=== PATIENT | female | born 1970 | race Caucasian/White ===

== ENCOUNTER 2022-03-30 20:20 | Emergency (ER) | payer OTHER ==
[~2022-03-30] VITALS: Ht 167.6 cm; Wt 81.6 kg
[2022-03-30 21:37] VITALS: BP 166/105
--- NOTE | 2022-03-31 01:00 | NUR ---
CALLED FOR PT. NO ANSWER
--- NOTE | 2022-03-31 01:58 | NUR ---
PATIENT LEFT WITHOUT BEING SEEN BY DR. JAIN. NO FURTHER CARE PROVIDED FOR PATIENT.
--- NOTE | 2022-03-31 01:58 | NUR ---
PT CALLED. NO ANSWER
== END 2022-03-31 01:58 | disposition left against medical advice (07) ==
LOC: MED 20:20
DX: R42 Dizziness and giddiness (principal); H92.09 Otalgia, unspecified ear; Z53.21 Procedure and treatment not carried out due to patient leaving prior to being seen by health care provider